=== PATIENT | female | born 1980 | race Caucasian/White ===

== ENCOUNTER 2016-07-19 16:13 | Emergency (ER) | payer BC ==
[~2016-07-19] VITALS: Ht 160 cm; Wt 104.5 kg
[2016-07-19 16:19] VITALS: TEMP 99.2
[2016-07-19] MEDS ORDERED: EFFEXOR-XR150 MG PO (16:23)
[2016-07-19] MEDS ORDERED: TOPAMAX 100MG100 M1 PO (16:24)
[2016-07-19] MEDS ORDERED: AZURETTE1 TAB PO (16:24)
[2016-07-19] MEDS ORDERED: ATIVAN 0.50.5 MG/TAB PO (16:24)
[2016-07-19 17:20] LABS: BASO # 0.1 (0.0-0.2); BASO % 0.7 % (0.0-2.0); EOS # 0.4 (0.0-0.7); EOS % 3.9 % (0-4.0); GRAN % 62.9 % (42.2-75.2); HEMATOCRIT 44.3 % (37.0-47.0); HEMOGLOBIN 15.2 g/dl (12.5-16.0); LYMPH % 27.2 % (20.0-51.0); MEAN CELL VOLUME 89 fl (80.0-100.0); MEAN CORPUSCULAR HEMOGLOBIN 31 pg (27.0-31.0); MEAN CORPUSCULAR HGB CONC 34 g/dl (33.0-37.0); MEAN PLATELET VOLUME 10.9 fl (7.4-10.4); MONO # 0.6 (0.1-0.6); PLATELET COUNT 259 K/mm3 (130-400); RED BLOOD COUNT 4.96 M/mm3 (4.10-5.30); REDCELL DISTRIBUTION WIDTH-CV 13.6 % (11.5-14.5); WHITE BLOOD COUNT 11.2 K/mm3 (4.8-10.8)
[2016-07-19] MEDS ORDERED: MOTRIN 200200 MG/TAB PO (17:26)
[2016-07-19 17:29] LABS: ADJUSTED CALCIUM 9.1 mg/dL (8.4-10.2); ALANINE AMINOTRANSFERASE 32 U/L (9-52); ALBUMIN 4.5 gm/dL (3.5-5.0); ALKALINE PHOSPHATASE 102 U/L (50-136); ANION GAP 14 mmol/L (7-16); BILIRUBIN,TOTAL 0.7 mg/dL (0.0-1.0); BLOOD UREA NITROGEN 6 mg/dL (7-17); CALCIUM 9.5 mg/dL (8.4-10.2); CARBON DIOXIDE 19 mmol/L (22-30); CHLORIDE 106 mmol/L (98-107); CREATININE, serum 0.65 mg/dL (0.52-1.25); GLUCOSE 110 mg/dL (74-106); POTASSIUM 3.6 mmol/L (3.4-5.0); SODIUM 140 mmol/L (137-145); TOTAL PROTEIN 8.7 gm/dL (6.4-8.2)
[2016-07-19 17:35] LABS: ACETAMINOPHEN < 10 ug/mL (10-30); SALICYLATE < 1.0 mg/dL
[2016-07-19 18:00] LABS: PH 5 (5-8); URINE APPEARANCE Hazy; URINE BACTERIA None Seen /hpf; URINE BILIRUBIN Negative (NEGATIVE); URINE BLOOD Negative (NEGATIVE); URINE COLOR Yellow; URINE GLUCOSE Negative (NEGATIVE); URINE KETONE Trace (NEGATIVE); URINE RBC 0-2 /hpf; URINE UROBILINOGEN Negative (NEGATIVE)
[2016-07-19 18:03] LABS: AMPHETAMINE URINE NEGATIVE; BARBITURATES URINE NEGATIVE; BENZODIAZEPINES URINE NEGATIVE; BUPRENORPHINE URINE NEGATIVE; METHADONE URINE NEGATIVE; OPIATES URINE NEGATIVE; OXYCODONE URINE NEGATIVE; PHENCYCLIDINE URINE NEGATIVE; PROPOXYPHENE URINE NEGATIVE; THC CANNABINOIDS URINE NEGATIVE
[2016-07-19 20:52] VITALS: BP 150/102; PULSE 92
== END 2016-07-19 20:57 | disposition home or self-care (01) ==
LOC: COL.ER 16:13
PROVIDERS: Emergency Medicine
DX: F32.9 Major depressive disorder, single episode, unspecified (principal); R45.851 Suicidal ideations; F41.9 Anxiety disorder, unspecified

== ENCOUNTER → 2016-09-11 | Outpatient (CLI) | payer BC ==
[~2016-09-11] MED LIST: ATIVAN 0.50.5 MG/TAB PO; AZURETTE1 TAB PO; EFFEXOR-XR150 MG PO; MOTRIN 200200 MG/TAB PO; TOPAMAX 100MG100 M1 PO
== END ==
LOC: BHSO 08:41
DX: F33.1 Major depressive disorder, recurrent, moderate (principal)
CPT/HCPCS: 90791-AI

== ENCOUNTER → 2016-10-14 | Outpatient (CLI) | payer BC | LOC: BHSO 08:18 | DX: F33.41 Major depressive disorder, recurrent, in partial remission (principal) ==

== ENCOUNTER 2022-10-07 07:26 | Day surgery (SDC) | payer BC ==
[~2022-10-07] VITALS: Ht 160 cm; Wt 109.1 kg
[2022-10-07] MEDS ORDERED: EFFEXOR 75M75 MG/TAB PO (08:08)
[2022-10-07] MEDS ORDERED: GLUCOTROL 5M5 MG/TAB PO (08:08)
[2022-10-07] MEDS ORDERED: APRI 0.15 MG-0.1 TAB PO (08:09)
[2022-10-07] MEDS ORDERED: ZYBAN150 M1 PO (08:09)
[2022-10-07] MEDS ORDERED: ACTOS30 MG PO (08:09)
[2022-10-07] MEDS ORDERED: CRESTOR5 MG PO (08:10)
[2022-10-07] MEDS ORDERED: PRINIVIL20 MG PO (08:11)
[2022-10-07 08:16] VITALS: BP 126/87; PULSE 105; TEMP 97.9
[2022-10-07] MEDS ORDERED: ASPIRIN 81M81 MG/TA2 PO (08:36)
[2022-10-07] MEDS ORDERED: CEPHALEXIN500 M1 PO (08:36)
[2022-10-07] MEDS ORDERED: NORCO 325 MG-51 TAB PO (08:37)
[2022-10-07 11:15] VITALS: BP 112/47; PULSE 110; TEMP 99.6
--- NOTE | 2022-10-07 11:15 | NUR ---
1115 PATIENT RETURNS TO ROOM 5 VIA CART. PATIENT IS ALERT AND ORIENTED. RESPIRATIONS EVEN AND UNLABORED, USING 1LPM VIA NC. VITAL SIGNS OBTAINED. MOTHER AND STEPFATHER ARE IN ROOM. PATIENT HAS A 4X4, KERLIX AND JASE WRAP PRESENT TO LEFT KNEE, CDI. PEDAL PULSES STRONG BILATERALLY. PATIENT REQUESTED A WATER AND MUFFIN. NO DIFFICULTIES SWALLOWING. PATIENT STATES THAT SHE IS NOT HAVING ANY PAIN AT THIS TIME. DOCTOR IN TO SPEAK WITH PATIENT AND FAMILY AT 1141. 1150 DISCONTINUED IV FROM LEFT WRIST WITH NO DIFFICULTIES. 1200 THIS NURSE REVIEWED DISCHARGE INSTRUCTIONS WITH PATIENT. PATIENT VERBALIZED UNDERSTANDING. 1220 PATIENT DISCHARGES FROM UNIT VIA WHEELCHAIR IN STABLE CONDITION. PATIENT STEPFATHER IS DRIVING PATIENT HOME.
[2022-10-07 11:30] VITALS: BP 112/60; PULSE 73
[2022-10-07 11:45] VITALS: BP 107/42; PULSE 57
[2022-10-07 12:00] VITALS: BP 116/61; PULSE 72
== END 2022-10-07 11:15 | disposition home or self-care (01) ==
LOC: SDCO 07:26
DX: M25.562 Pain in left knee (principal); M67.52 Plica syndrome, left knee; M94.8X6 Other specified disorders of cartilage, lower leg; E11.9 Type 2 diabetes mellitus without complications; Z79.84 Long term (current) use of oral hypoglycemic drugs
CPT/HCPCS: J0171; J0690; J1100; J2370; J2405; J2704; J3010; J7120

== ENCOUNTER → 2023-11-05 | Outpatient (CLI) | payer BC ==
[~2023-11-05] MED LIST changes: +ACTOS30 MG PO; +AMOXICILLIN875 MG PO; +APRI 0.15 MG-0.1 TAB PO; +ASPIRIN 81M81 MG/TA2 PO; +CEPHALEXIN500 M1 PO; +CRESTOR5 MG PO; +EFFEXOR 75M75 MG/TAB PO; +GLUCOTROL 5M5 MG/TAB PO; +NORCO 325 MG-51 TAB PO; +PRINIVIL20 MG PO; +ZYBAN150 M1 PO
== END ==
LOC: MC.RAD 14:09
DX: Z12.31 Encounter for screening mammogram for malignant neoplasm of breast (principal)